=== PATIENT | female | born 1965 | race Caucasian/White ===

== ENCOUNTER 2024-07-25 11:36 | Outpatient (CLI) | payer BC ==
[2024-07-25 14:12] LABS: Bilirubin Negative (Negative); Blood, Urine 3+ (Negative); Clarity Clear (Clear); Glucose, Urine (Dipstick) Normal (Negative); Ketone, Urine Negative (Negative); Leukocyte 250 Leu/uL (Negative); Nitrite Negative (Negative); Protein, Urine (Dipstick) 30 mg/dL (Neg-Trace); Specific Gravity, Urine 1.001 (1.002-1.036); Squamous Epithelial 0-3 HPF (0-3); Urobilinogen Normal mg/dL (Less than 2); WBC/HPF 0-3 HPF (0-3); pH, Urine 5.5 (5.0-9.0)
[2024-07-25 14:13] LABS: Bacteria/HPF 1+ HPF (None Seen)
== END 2024-07-25 11:37 | disposition home or self-care (01) ==
LOC: LABBT 11:36
PROVIDERS: ATTEND Urology
DX: Z01.818 Encounter for other preprocedural examination (principal); N20.0 Calculus of kidney
CPT/HCPCS: 81001; 87086; 93005; 93010

== ENCOUNTER 2024-08-11 06:29 | Day surgery (SDC) | payer BC ==
[2024-07-25 11:49] VITALS: BMI 23.1
[2024-08-11] MEDS ORDERED: fentaNYL PF 100 MCG/2 ML SYRINGE ONE (09:07)
[2024-08-11] MEDS ORDERED: PROPOFOL 20 ML ONE (09:07)
[2024-08-11] MEDS ORDERED: Midazolam HCl 2 mg/2 ml Vial ONE (09:07)
[2024-08-11] MEDS ORDERED: cefTRIAXone (ROCEPHIN) 1 GM VIAL ONE (09:17)
[2024-08-11] MEDS ORDERED: Oxybutynin 5 MG TAB ONE (10:49)
[2024-08-11] MEDS ORDERED: Phenazopyridine HCl 100 MG TAB ONE (10:49)
[2024-08-11] MEDS ORDERED: HYDROcodone/Acetaminophen 5/325 mg Tablet ONE ×2 (12:50→12:52)
== END 2024-08-11 13:50 | disposition home or self-care (01) ==
LOC: SDC 06:29
PROVIDERS: ATTEND Urology
PROC: 0TC08ZZ Extirpation of Matter from Right Kidney, Via Natural or Artificial Opening Endoscopic (ICD-10-PCS; principal; 2024-08-11)
PROC: 0T768DZ Dilation of Right Ureter with Intraluminal Device, Via Natural or Artificial Opening Endoscopic (ICD-10-PCS; 2024-08-11)
DX: N20.0 Calculus of kidney (principal); G47.30 Sleep apnea, unspecified; Z98.49 Cataract extraction status, unspecified eye; Z85.828 Personal history of other malignant neoplasm of skin
CPT/HCPCS: 74420; 82365; 88300; C1769; C2617; J0696; J2250; J2704